=== PATIENT | male | born 2000 | race Two or more races ===

== ENCOUNTER 2023-02-14 01:11 | Emergency (ER) | payer SELFPAY ==
[~2023-02-14] VITALS: Ht 165.1 cm; Wt 86.2 kg
[2023-02-14 01:28] VITALS: BP 130/90
== END 2023-02-14 02:01 ==
LOC: ER 01:11 → EDBD 01:11 → ER 01:43
DX: R00.0 Tachycardia, unspecified (principal); F41.9 Anxiety disorder, unspecified; F10.10 Alcohol abuse, uncomplicated